=== PATIENT | female | born 1950 | race Caucasian/White ===

== ENCOUNTER 2020-10-08 07:44 | Inpatient (IN) | payer MEDICARE, OTHER ==
[2020-10-08] MEDS ORDERED: Acetaminophen/HYDROcodone 325-5 MG Tab PO ONE (07:55)
--- NOTE | 2020-10-08 08:19 | EDM.PDOC ---
ED HPI GENERAL MEDICAL PROBLEM - General Chief Complaint: Lower Extremity Injury/Pain Stated Complaint: [facility] Time Seen by Provider: 10/08/20 07:48 Source of Information: Reports: Patient History Limitations: Reports: No Limitations - History of Present Illness INITIAL COMMENTS - FREE TEXT/NARRATIVE: The patient presents by [facility] for a fall and left hip pain. She was going outside to shovel snow and she tripped and fell and landed on his left hip. She had to crawl into her house and call for help. She did not hit her head or hurt her neck. She is not on any blood thinners. She has no chest pain or abdominal pain. She has left hip pain. She has no fever, chills, cough, congestion, or runny nose. She has a history of type II diabetes on metformin and she also has hypothyroidism. She has no history of heart disease. Onset: Sudden Duration: Minutes: Location: Reports: Lower Extremity, Left (hip) Quality: Reports: Sharp Severity: Moderate Improves with: Reports: Immobilization Worsens with: Reports: Movement Context: Reports: Trauma (tripped and fell) Associated Symptoms: Reports: No Other Symptoms Left Hip Pain Score (Numeric/FACES): 5 - Related Data Allergies Allergy/AdvReac Type Severity Reaction Status Date / Time glipizide Allergy Dizziness Verified 10/08/20 07:52 Home Meds: Home Meds Levothyroxine 125 mcg PO DAILY 10/08/20 [History] metFORMIN [Glucophage] 1,000 mg PO BID 10/08/20 [History] Review of Systems - Review of Systems Review Of Systems: See Below Constitutional: Reports: No Symptoms Eyes: Reports: No Symptoms Ears: Reports: No Symptoms Nose: Reports: No Symptoms Mouth/Throat: Reports: No Symptoms Respiratory: Reports: No Symptoms Cardiovascular: Reports: No Symptoms GI/Abdominal: Reports: No Symptoms Genitourinary: Reports: No Symptoms Musculoskeletal: Reports: Other (Left hip pain) ED EXAM, GENERAL - Physical Exam Exam: See Below Exam Limited By: No Limitations General Appearance: Alert, No Apparent Distress Ears: Normal External Exam Nose: Normal Inspection Head: Atraumatic, Normocephalic Neck: Normal Inspection Respiratory/Chest: No Respiratory Distress, Lungs Clear, Normal Breath Sounds Cardiovascular: Regular Rate, Rhythm, No Edema, No Murmur GI/Abdominal: Soft, Non-Tender, No Organomegaly, No Mass Extremities: Other (Pain upon palpation to the left hip. Good sensation and pulses distally.) Neurological: Alert, Oriented, No Motor/Sensory Deficits #1 Interpretation EKG Date: 10/08/20 Time: 09:11 Rhythm: NSR Rate (Beats/Min): 85 [place]: Normal P-Wave: Present QRS: Normal ST-T: Normal QT: Normal Course - Vital Signs Last Recorded V/S: Last Vital Signs Temp 97.0 F 10/08/20 07:44 Pulse 90 10/08/20 07:44 Resp 16 10/08/20 07:44 BP 140/70 10/08/20 07:44 Pulse Ox 100 10/08/20 07:44 - Orders/Labs/Meds Orders: Active Orders 24 hr Category Date Time Status Patient Status [ADT] Routine ADT 10/08/20 09:54 Active Cardiac Monitoring [RC] . DIRECTED Care 10/08/20 08:42 Active EKG Documentation Completion [RC] STAT Care 10/08/20 08:43 Active Peripheral IV Care [RC] . DIRECTED Care 10/08/20 08:44 Active CORONAVIRUS COVID-19 ROHAN [MOLEC] Stat Lab 10/08/20 09:05 Received Sodium Chloride 0.9% [Saline Flush] Med 10/08/20 08:42 Active 10 ml FLUSH ASDIRECTED PRN Peripheral IV Insertion Adult [OM.PC] Stat Oth 10/08/20 08:42 Ordered Schedule Procedure [COMM] Stat Oth 10/08/20 09:54 Ordered Medication Orders Sodium Chloride (Saline Flush) 10 ml FLUSH ASDIRECTED PRN PRN Reason: Keep Vein Open Last Admin: 10/08/20 08:59 Dose: 10 ml Documented by: CATHI Labs: Laboratory Tests 10/08/20 10/08/20 10/08/20 Range/Units 08:59 08:59 08:59 WBC 12.91 H (3.98-10.04) K/mm3 RBC 4.72 (3.98-5.22) M/mm3 Hgb 14.8 (11.2-15.7) gm/dl Hct 43.7 (34.1-44.9) % MCV 92.6 (79.4-94.8) fl MCH 31.4 (25.6-32.2) pg MCHC 33.9 (32.2-35.5) g/dl RDW Std Deviation 43.5 (36.4-46.3) fL Plt Count 247 (182-369) K/mm3 MPV 9.9 (9.4-12.3) fl Neut % (Auto) 83.4 H (34.0-71.1) % Lymph % (Auto) 9.1 L (19.3-51.7) % [place] % (Auto) 6.7 (4.7-12.5) % Eos % (Auto) 0.4 L (0.7-5.8) Baso % (Auto) 0.1 (0.1-1.2) % Neut # (Auto) 10.77 H (1.56-6.13) K/mm3 Lymph # (Auto) 1.18 (1.18-3.74) K/mm3 [place] # (Auto) 0.86 H (0.24-0.36) K/mm3 Eos # (Auto) 0.05 (0.04-0.36) K/mm3 Baso # (Auto) 0.01 (0.01-0.08) K/mm3 Manual Slide Review Abnormal smear PT 10.3 (9.7-12.0) SECONDS INR 0.96 APTT 27.3 (21.7-31.4) SECONDS Sodium 141 (136-145) mEq/L Potassium 4.0 (3.5-5.1) mEq/L Chloride 100 (98-107) mEq/L Carbon Dioxide 27 (21-32) mEq/L Anion Gap 18.0 H (5-15) BUN 19 H (7-18) mg/dL Creatinine 0.9 (0.55-1.02) mg/dL Est Cr Clr Drug Dosing 51.59 mL/min Estimated GFR (MDRD) > 60 (>60) mL/min BUN/Creatinine Ratio 21.1 H (14-18) Glucose 181 H (83-115) mg/dL Hemoglobin A1c ( - 5.6) % Calcium 9.6 (8.5-10.1) mg/dL Total Bilirubin 0.4 (0.2-1.0) mg/dL AST 18 (15-37) U/L ALT 36 (14-59) U/L Alkaline Phosphatase 77 (46-116) U/L Troponin I < 0.017 (0.00-0.056) ng/mL Total Protein 8.0 (6.4-8.2) g/dl Albumin 4.0 (3.4-5.0) g/dl Globulin 4.0 gm/dL Albumin/Globulin Ratio 1.0 (1-2) TSH 3rd Generation 1.010 (0.358-3.74) uIU/mL 10/08/20 Range/Units 08:59 WBC (3.98-10.04) K/mm3 RBC (3.98-5.22) M/mm3 Hgb (11.2-15.7) gm/dl Hct (34.1-44.9) % MCV (79.4-94.8) fl MCH (25.6-32.2) pg MCHC (32.2-35.5) g/dl RDW Std Deviation (36.4-46.3) fL Plt Count (182-369) K/mm3 MPV (9.4-12.3) fl Neut % (Auto) (34.0-71.1) % Lymph % (Auto) (19.3-51.7) % [place] % (Auto) (4.7-12.5) % Eos % (Auto) (0.7-5.8) Baso % (Auto) (0.1-1.2) % Neut # (Auto) (1.56-6.13) K/mm3 Lymph # (Auto) (1.18-3.74) K/mm3 [place] # (Auto) (0.24-0.36) K/mm3 Eos # (Auto) (0.04-0.36) K/mm3 Baso # (Auto) (0.01-0.08) K/mm3 Manual Slide Review PT (9.7-12.0) SECONDS INR APTT (21.7-31.4) SECONDS Sodium (136-145) mEq/L Potassium (3.5-5.1) mEq/L Chloride (98-107) mEq/L Carbon Dioxide (21-32) mEq/L Anion Gap (5-15) BUN (7-18) mg/dL Creatinine (0.55-1.02) mg/dL Est Cr Clr Drug Dosing mL/min Estimated GFR (MDRD) (>60) mL/min BUN/Creatinine Ratio (14-18) Glucose (83-115) mg/dL Hemoglobin A1c 7.9 H ( - 5.6) % Calcium (8.5-10.1) mg/dL Total Bilirubin (0.2-1.0) mg/dL AST (15-37) U/L ALT (14-59) U/L Alkaline Phosphatase (46-116) U/L Troponin I (0.00-0.056) ng/mL Total Protein (6.4-8.2) g/dl Albumin (3.4-5.0) g/dl Globulin gm/dL Albumin/Globulin Ratio (1-2) TSH 3rd Generation (0.358-3.74) uIU/mL Meds: Medications Generic Name Dose Route Start Last Admin Trade Name Freq PRN Reason Stop Dose Admin Sodium Chloride 10 ml 10/08/20 08:42 10/08/20 08:59 Saline Flush FLUSH 10 ml ASDIRECTED PRN Administration Keep Vein Open Discontinued Medications Generic Name Dose Route Start Last Admin Trade Name Freq PRN Reason Stop Dose Admin Hydrocodone Bitart/Acetaminophen 1 tab 10/08/20 07:55 10/08/20 08:01 [place] 325-5 Mg PO 10/08/20 07:56 1 tab ONETIME ONE Administration - Re-Assessments/Exams Free Text/Narrative Re-Assessment/Exam: 10/08/20 09:05 I ordered an x-ray and it showed a subcapital fracture of the left hip. I gave her a norco before she had the x-ray. I called Dr Cedillo and he came to see the patient. He asked if we admit to the hospitalist service. I called Dr Tesfaye and he agreed to the admission. I have ordered an IV saline lock, labs, and EKG. 10/08/20 10:03 Her EKG shows a NSR with no acute changes. Her WBC was elevated at 12.91. Her PT and PTT are normal. Her glucose is elevated at 181. Her hemoglobin A1C was elevated at 7.9. Her troponin and TSH are normal. She will be going to surgery within the hour. Departure - Departure Time of Disposition: 10:05 Disposition: Admitted As Inpatient 65 Condition: Fair Clinical Impression: Fall Qualifiers: Encounter type: initial encounter Qualified Code(s): W19.XXXA - Unspecified fall, initial encounter Hip fracture, left Qualifiers: Encounter type: initial encounter Fracture type: closed Qualified Code(s): S72.002A - Fracture of unspecified part of neck of left femur, initial encounter for closed fracture - Discharge Information Referrals: Gifty Giordano MD [Primary Care Provider] - Forms: ED Department Discharge Sepsis Event Note (ED) - Focused Exam Vital Signs: Vital Signs Temp Pulse Resp BP Pulse Ox 10/08/20 07:44 97.0 F 90 16 140/70 100 - My Orders Last 24 Hours: My Active Orders 10/08/20 08:42 Cardiac Monitoring [RC] . DIRECTED Sodium Chloride 0.9% [Saline Flush] 10 ml FLUSH ASDIRECTED PRN Peripheral IV Insertion Adult [OM.PC] Stat 10/08/20 08:43 EKG Documentation Completion [RC] STAT 10/08/20 08:44 Peripheral IV Care [RC] . DIRECTED 10/08/20 09:05 CORONAVIRUS COVID-19 ROHAN [MOLEC] Stat 10/08/20 09:54 Patient Status [ADT] Routine Schedule Procedure [COMM] Stat - Assessment/Plan Last 24 Hours: My Active Orders 10/08/20 08:42 Cardiac Monitoring [RC] . DIRECTED Sodium Chloride 0.9% [Saline Flush] 10 ml FLUSH ASDIRECTED PRN Peripheral IV Insertion Adult [OM.PC] Stat 10/08/20 08:43 EKG Documentation Completion [RC] STAT 10/08/20 08:44 Peripheral IV Care [RC] . DIRECTED 10/08/20 09:05 CORONAVIRUS COVID-19 ROHAN [MOLEC] Stat 10/08/20 09:54 Patient Status [ADT] Routine Schedule Procedure [COMM] Stat
[2020-10-08] MEDS ORDERED: Sodium Chloride 0.9% 10 ML Syringe FLUSH PRN (08:42)
--- NOTE | 2020-10-08 08:45 | CR ---
Pelvis and left hip: AP view of the pelvis was obtained as well as AP and crosstable lateral views of the left hip. Nondisplaced subcapital fracture is noted within the left hip. Minimal degenerative change is seen within both hips. Slight disc space narrowing is noted within the lower thoracic spine. Osteopenia is noted. No additional fracture or other bony abnormality is appreciated. Impression: 1. Nondisplaced subcapital fracture within the left hip. 2. Osteopenia and mild degenerative change. Diagnostic code #3
[2020-10-08 09:23] LABS: HEMOGLOBIN A1C 7.9 %
--- NOTE | 2020-10-08 10:18 | PCM.PREANE ---
Preanesthetic Assessment - Procedure Proposed Procedure: Left hip - Anesthesia/Transfusion/Family Hx Anesthesia History: Prior Anesthesia Without Reaction - Review of Systems General: No Symptoms Pulmonary: No Symptoms Cardiovascular: No Symptoms Gastrointestinal: No Symptoms Neurological: No Symptoms Other: Reports: None - Physical Assessment NPO Status Date: 10/07/20 NPO Status Time: 18:30 Vital Signs: Last Vital Signs Temp 97.0 F 10/08/20 07:44 Pulse 90 10/08/20 07:44 Resp 16 10/08/20 07:44 BP 140/70 10/08/20 07:44 Pulse Ox 100 10/08/20 07:44 Height: 1.65 m Weight: 81.647 kg ASA Class: 2E Mental Status: Alert & Oriented x3 Airway Class: Mallampati = 3 Dentition: Reports: Normal Dentition, [place](s) Thyro-Mental Finger Breadths: 3 Mouth Opening Finger Breadths: 3 ROM/Head Extension: Full Lungs: Clear to Auscultation, Normal Respiratory Effort Cardiovascular: Regular Rate, Regular Rhythm - Lab Values: Laboratory Last Values WBC 12.91 K/mm3 (3.98-10.04) H 10/08/20 08:59 RBC 4.72 M/mm3 (3.98-5.22) 10/08/20 08:59 Hgb 14.8 gm/dl (11.2-15.7) 10/08/20 08:59 Hct 43.7 % (34.1-44.9) 10/08/20 08:59 MCV 92.6 fl (79.4-94.8) 10/08/20 08:59 MCH 31.4 pg (25.6-32.2) 10/08/20 08:59 MCHC 33.9 g/dl (32.2-35.5) 10/08/20 08:59 RDW Std Deviation 43.5 fL (36.4-46.3) 10/08/20 08:59 Plt Count 247 K/mm3 (182-369) 10/08/20 08:59 MPV 9.9 fl (9.4-12.3) 10/08/20 08:59 Neut % (Auto) 83.4 % (34.0-71.1) H 10/08/20 08:59 Lymph % (Auto) 9.1 % (19.3-51.7) L 10/08/20 08:59 [place] % (Auto) 6.7 % (4.7-12.5) 10/08/20 08:59 Eos % (Auto) 0.4 (0.7-5.8) L 10/08/20 08:59 Baso % (Auto) 0.1 % (0.1-1.2) 10/08/20 08:59 Neut # (Auto) 10.77 K/mm3 (1.56-6.13) H 10/08/20 08:59 Lymph # (Auto) 1.18 K/mm3 (1.18-3.74) 10/08/20 08:59 [place] # (Auto) 0.86 K/mm3 (0.24-0.36) H 10/08/20 08:59 Eos # (Auto) 0.05 K/mm3 (0.04-0.36) 10/08/20 08:59 Baso # (Auto) 0.01 K/mm3 (0.01-0.08) 10/08/20 08:59 Manual Slide Review Abnormal smear 10/08/20 08:59 PT 10.3 SECONDS (9.7-12.0) 10/08/20 08:59 INR 0.96 10/08/20 08:59 APTT 27.3 SECONDS (21.7-31.4) 10/08/20 08:59 Sodium 141 mEq/L (136-145) 10/08/20 08:59 Potassium 4.0 mEq/L (3.5-5.1) 10/08/20 08:59 Chloride 100 mEq/L (98-107) 10/08/20 08:59 Carbon Dioxide 27 mEq/L (21-32) 10/08/20 08:59 Anion Gap 18.0 (5-15) H 10/08/20 08:59 BUN 19 mg/dL (7-18) H 10/08/20 08:59 Creatinine 0.9 mg/dL (0.55-1.02) 10/08/20 08:59 Est Cr Clr Drug Dosing 51.59 mL/min 10/08/20 08:59 Estimated GFR (MDRD) > 60 mL/min (>60) 10/08/20 08:59 BUN/Creatinine Ratio 21.1 (14-18) H 10/08/20 08:59 Glucose 181 mg/dL (83-115) H 10/08/20 08:59 Hemoglobin A1c 7.9 % (-5.6) H 10/08/20 08:59 Calcium 9.6 mg/dL (8.5-10.1) 10/08/20 08:59 Total Bilirubin 0.4 mg/dL (0.2-1.0) 10/08/20 08:59 AST 18 U/L (15-37) 10/08/20 08:59 ALT 36 U/L (14-59) 10/08/20 08:59 Alkaline Phosphatase 77 U/L (46-116) 10/08/20 08:59 Troponin I < 0.017 ng/mL (0.00-0.056) 10/08/20 08:59 Total Protein 8.0 g/dl (6.4-8.2) 10/08/20 08:59 Albumin 4.0 g/dl (3.4-5.0) 10/08/20 08:59 Globulin 4.0 gm/dL 10/08/20 08:59 Albumin/Globulin Ratio 1.0 (1-2) 10/08/20 08:59 TSH 3rd Generation 1.010 uIU/mL (0.358-3.74) 10/08/20 08:59 SARS-CoV-2 RNA (ROHAN) Negative (NEGATIVE) 10/08/20 09:05 - Allergies Allergies/Adverse Reactions: Allergies Allergy/AdvReac Type Severity Reaction Status Date / Time glipizide Allergy Dizziness Verified 10/08/20 07:52 - Acknowledgements Anesthesia Type Planned: Spinal Pt an Appropriate Candidate for the Planned Anesthesia: Yes Alternatives and Risks of Anesthesia Discussed w Pt/Guardian: Yes Pt/Guardian Understands and Agrees with Anesthesia Plan: Yes PreAnesthesia Questionnaire HEENT History: Reports: Hard of Hearing, Impaired Vision Other HEENT History: wears eyeglasses, bilateral hearing aides. Genitourinary History: Reports: UTI, Recurrent [employer] History: Reports: Musculoskeletal History: Reports: Fracture Endocrine/Metabolic History: Reports: Diabetes, Type II, Hypothyroidism - Infectious Disease History Infectious Disease History: Reports: Chicken Pox, Measles, Mumps - Past Surgical History Neurological Surgical History: Reports: Discectomy, Lumbar Spine - SUBSTANCE USE Tobacco Use Status *Q: Never Tobacco User Second Hand Smoke Exposure: No Recreational Drug Use History: No - HOME MEDS Home Medications: Home Meds Levothyroxine 125 mcg PO DAILY 10/08/20 [History] metFORMIN [Glucophage] 1,000 mg PO BID 10/08/20 [History] - CURRENT (IN HOUSE) MEDS Current Meds: Current Medications Sodium Chloride (Saline Flush) 10 ml FLUSH ASDIRECTED PRN PRN Reason: Keep Vein Open Last Admin: 10/08/20 08:59 Dose: 10 ml Documented by: Discontinued Medications Hydrocodone Bitart/Acetaminophen ([place] 325-5 Mg) 1 tab PO ONETIME ONE Stop: 10/08/20 07:56 Last Admin: 10/08/20 08:01 Dose: 1 tab Documented by:
[2020-10-08] MEDS ORDERED: Propofol 200 MG/20 ML SDV ONE (10:41)
[2020-10-08] MEDS ORDERED: fentaNYL 100 MCG/2 ML SDV ONE (10:41)
[2020-10-08] MEDS ORDERED: Ketamine 500 mg/10 ML MDV ONE (10:42)
[2020-10-08] MEDS ORDERED: Midazolam 1 MG/ML 2 ML SDV ONE (10:42)
[2020-10-08] MEDS ORDERED: Lidocaine 1% 4 ML ONE (10:44)
[2020-10-08] MEDS ORDERED: Vancomycin 1 GM SDV ONE (10:58)
[2020-10-08] MEDS ORDERED: Bupivacaine 0.25% 10 ML SDV ONE (10:59)
[2020-10-08] MEDS ORDERED: ceFAZolin 1 GM Vial ONE (11:16)
[2020-10-08] MEDS ORDERED: Morphine 8 MG, EPINEPHrine 0.3 MG, Cefuroxime 750 MG, Ketorolac 30 MG, Sodium Chloride ... PRN ×5 (11:30)
[2020-10-08] MEDS ORDERED: Morphine 2 MG/ML SYRINGE IVPUSH PRN (13:26)
[2020-10-08] MEDS ORDERED: Ondansetron 4 MG/2 ML SDV IV PRN (13:26)
[2020-10-08] MEDS ORDERED: Docusate Sodium 100 MG Cap PO PRN (13:26)
[2020-10-08] MEDS ORDERED: Acetaminophen 325 MG Tab PO PRN (13:26)
--- NOTE | 2020-10-08 13:33 | PCM.POSTAN ---
POST ANESTHESIA ASSESSMENT - MENTAL STATUS Mental Status: Alert, Oriented, Somnolent - VITAL SIGNS Vital Signs: Last Vital Signs Temp 97.5 F 10/08/20 13:20 Pulse 77 10/08/20 13:20 Resp 12 10/08/20 13:20 BP 127/66 10/08/20 13:20 Pulse Ox 95 10/08/20 13:20 - RESPIRATORY Respiratory Status: Respiratory Rate WNL, Airway Patent, O2 Saturation Stable, Supplemental Oxygen - CARDIOVASCULAR CV Status: Pulse Rate WNL, Blood Pressure Stable - GASTROINTESTINAL GI Status: No Symptoms - PAIN Pain Score: 0 (post SAB) - POST OP HYDRATION Hydration Status: Adequate & Stable
--- NOTE | 2020-10-08 13:35 | PCM.HP.2 ---
H&P History of Present Illness - General Date of Service: 10/08/20 Admit Problem/Dx: Admission Diagnosis/Problem Admission Diagnosis/Problem Hip fracture requiring operative repair Source of Information: Patient, Old Records, Provider, RN, RN Notes Reviewed History Limitations: Reports: No Limitations - History of Present Illness Initial Comments - Free Text/Narative: This is a 1-year-old female who presents via [facility] to our ED on 08/07/2021 after a fall. Patient was going outside to shovel snow and tripped landing on her left hip. Denies hitting her head or hurting her back or neck. She denies any current blood thinners. She reports left hip pain. Denies any chest pain, abdominal pain, fever, chills, cough, congestion, runny nose. In the ED temp was 97 F. Pulse 90. Respirations 16. Blood pressure 140/70. Pulse ox 100% on room air. EKG is obtained showing a sinus rhythm at 85 bpm with no ectopy or make changes. Labs are obtained showing a WBC of 12.91. Hemoglobin is 14.8. Platelet 247,000. Neutrophils are elevated at 10.77. INR is 0.96. Sodium is 141. Potassium 4.0. Chloride 100. Carbon dioxide 27. Anion gap is 18.0. BUN is 19. Creatinine 0.9. GFR greater than 60. Glucose 181. Calcium is 9.6. Bilirubin 0.4. AST is 18, ALT 36, alkaline phosphatase 77. Troponin is less than 0.017. Albumin is 4.0. Hemoglobin A1c is 7.9. TSH 1.010. SARS-CoV-2 RNA negative. Hip x-rays obtained and shows a subcapital fracture of the left hip. She is given a Ragland for pain. Dr. Albarran today, orthopedic surgeon is into see the patient and will take her back to surgery today. Saline lock is inserted. Left BERE is performed today. She carries a history of type II DM and hypothyroidism. PCP is Dr. Giordano. She is a full code. She subsequently taken back for total hip arthroplasty and then admitted to the medical floor inpatient for recovery and postoperative management. Left Hip Pain Score (Numeric/FACES): 5 - Related Data Allergies/Adverse Reactions: Allergies Allergy/AdvReac Type Severity Reaction Status Date / Time glipizide AdvReac Dizziness Verified 10/08/20 10:47 Home Medications: Home Meds Levothyroxine 125 mcg PO DAILY 10/08/20 [History] metFORMIN [Glucophage] 1,000 mg PO BID 10/08/20 [History] Past Medical History HEENT History: Reports: Hard of Hearing, Impaired Vision Other HEENT History: wears eyeglasses, bilateral hearing aides. 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: Musculoskeletal History: Reports: Fracture Endocrine/Metabolic History: Reports: Diabetes, Type II, Hypothyroidism - Infectious Disease History Infectious Disease History: Reports: Chicken Pox, Measles, Mumps - Past Surgical History Neurological Surgical History: Reports: Discectomy, Lumbar Spine Social & Family History - Tobacco Use Tobacco Use Status *Q: Never Tobacco User Second Hand Smoke Exposure: No - Caffeine Use Caffeine Use: Reports: Coffee - Recreational Drug Use Recreational Drug Use: No H&P Review of Systems - Review of Systems: Review Of Systems: See Below General: Reports: No Symptoms. Denies: Fever, Chills, Malaise, Weakness, Fatigue HEENT: Reports: No Symptoms. Denies: Headaches, Sore Throat Pulmonary: Reports: No Symptoms. Denies: Shortness of Breath, Wheezing, Pleuritic Chest Pain, Cough, Sputum, Hemoptysis Cardiovascular: Reports: No Symptoms. Denies: Chest Pain, Palpitations, Dyspnea on Exertion Gastrointestinal: Reports: No Symptoms. Denies: Abdominal Pain, Constipation, Diarrhea, Nausea, Vomiting Genitourinary: Reports: No Symptoms. Denies: Pain Musculoskeletal: Reports: Leg Pain (left hip) Skin: Reports: No Symptoms. Denies: Cyanosis Psychiatric: Reports: No Symptoms. Denies: Confusion Neurological: Reports: Numbness, Tingling, Difficulty Walking, Weakness, Gait Disturbance. Denies: Confusion, Pre-Existing Deficit Hematologic/Lymphatic: Reports: No Symptoms Immunologic: Reports: No Symptoms Exam - Exam Exam: See Below - Vital Signs Vital Signs: Last Vital Signs Temp 97.5 F 10/08/20 13:20 Pulse 77 10/08/20 13:20 Resp 12 10/08/20 13:20 BP 127/66 10/08/20 13:20 Pulse Ox 95 10/08/20 13:20 Weight: 180 lb - Exam Quality Assessment: Supplemental Oxygen (2L ), DVT Prophylaxis. No: Urinary Catheter General: Alert, Oriented, Cooperative. No: Mild Distress HEENT: Conjunctiva Clear, EACs Clear, Mucosa Moist & [place], Posterior Pharynx Clear Neck: Supple, Trachea Midline Cardiovascular: Regular Rate, Regular Rhythm GI/Abdominal Exam: Normal Bowel Sounds, Soft, Non-Tender, No Distention (Female) Exam: Deferred Rectal (Female) Exam: Deferred Extremities: Leg Pain, Limited Range of Motion, Other (Bandage in place on left leg. Bandage is dry and intact. Cooling pack in place. ) Peripheral Pulses: 3+: Radial (L), Radial (R), Dorsalis Pedis (L), Dorsalis Pedis (R) Skin: Warm, Dry, Intact Neurological: Cranial Nerves Intact (Grossly ) Neuro Extensive - Mental Status: Alert, Oriented x3, Normal Mood/Affect - Patient Data Lab Results Last 24 hrs: Laboratory Results - last 24 hr 10/08/20 10/08/20 10/08/20 Range/Units 08:59 08:59 08:59 WBC 12.91 H (3.98-10.04) K/mm3 RBC 4.72 (3.98-5.22) M/mm3 Hgb 14.8 (11.2-15.7) gm/dl Hct 43.7 (34.1-44.9) % MCV 92.6 (79.4-94.8) fl MCH 31.4 (25.6-32.2) pg MCHC 33.9 (32.2-35.5) g/dl RDW Std Deviation 43.5 (36.4-46.3) fL Plt Count 247 (182-369) K/mm3 MPV 9.9 (9.4-12.3) fl Neut % (Auto) 83.4 H (34.0-71.1) % Lymph % (Auto) 9.1 L (19.3-51.7) % Rooks % (Auto) 6.7 (4.7-12.5) % Eos % (Auto) 0.4 L (0.7-5.8) Baso % (Auto) 0.1 (0.1-1.2) % Neut # (Auto) 10.77 H (1.56-6.13) K/mm3 Lymph # (Auto) 1.18 (1.18-3.74) K/mm3 Rooks # (Auto) 0.86 H (0.24-0.36) K/mm3 Eos # (Auto) 0.05 (0.04-0.36) K/mm3 Baso # (Auto) 0.01 (0.01-0.08) K/mm3 Manual Slide Review Abnormal smear PT 10.3 (9.7-12.0) SECONDS INR 0.96 APTT 27.3 (21.7-31.4) SECONDS Sodium 141 (136-145) mEq/L Potassium 4.0 (3.5-5.1) mEq/L Chloride 100 (98-107) mEq/L Carbon Dioxide 27 (21-32) mEq/L Anion Gap 18.0 H (5-15) BUN 19 H (7-18) mg/dL Creatinine 0.9 (0.55-1.02) mg/dL Est Cr Clr Drug Dosing 51.59 mL/min Estimated GFR (MDRD) > 60 (>60) mL/min BUN/Creatinine Ratio 21.1 H (14-18) Glucose 181 H (83-115) mg/dL Hemoglobin A1c ( - 5.6) % Calcium 9.6 (8.5-10.1) mg/dL Total Bilirubin 0.4 (0.2-1.0) mg/dL AST 18 (15-37) U/L ALT 36 (14-59) U/L Alkaline Phosphatase 77 (46-116) U/L Troponin I < 0.017 (0.00-0.056) ng/mL Total Protein 8.0 (6.4-8.2) g/dl Albumin 4.0 (3.4-5.0) g/dl Globulin 4.0 gm/dL Albumin/Globulin Ratio 1.0 (1-2) TSH 3rd Generation 1.010 (0.358-3.74) uIU/mL SARS-CoV-2 RNA (ROHAN) (NEGATIVE) 10/08/20 10/08/20 Range/Units 08:59 09:05 WBC (3.98-10.04) K/mm3 RBC (3.98-5.22) M/mm3 Hgb (11.2-15.7) gm/dl Hct (34.1-44.9) % MCV (79.4-94.8) fl MCH (25.6-32.2) pg MCHC (32.2-35.5) g/dl RDW Std Deviation (36.4-46.3) fL Plt Count (182-369) K/mm3 MPV (9.4-12.3) fl Neut % (Auto) (34.0-71.1) % Lymph % (Auto) (19.3-51.7) % Rooks % (Auto) (4.7-12.5) % Eos % (Auto) (0.7-5.8) Baso % (Auto) (0.1-1.2) % Neut # (Auto) (1.56-6.13) K/mm3 Lymph # (Auto) (1.18-3.74) K/mm3 Rooks # (Auto) (0.24-0.36) K/mm3 Eos # (Auto) (0.04-0.36) K/mm3 Baso # (Auto) (0.01-0.08) K/mm3 Manual Slide Review PT (9.7-12.0) SECONDS INR APTT (21.7-31.4) SECONDS Sodium (136-145) mEq/L Potassium (3.5-5.1) mEq/L Chloride (98-107) mEq/L Carbon Dioxide (21-32) mEq/L Anion Gap (5-15) BUN (7-18) mg/dL Creatinine (0.55-1.02) mg/dL Est Cr Clr Drug Dosing mL/min Estimated GFR (MDRD) (>60) mL/min BUN/Creatinine Ratio (14-18) Glucose (83-115) mg/dL Hemoglobin A1c 7.9 H ( - 5.6) % Calcium (8.5-10.1) mg/dL Total Bilirubin (0.2-1.0) mg/dL AST (15-37) U/L ALT (14-59) U/L Alkaline Phosphatase (46-116) U/L Troponin I (0.00-0.056) ng/mL Total Protein (6.4-8.2) g/dl Albumin (3.4-5.0) g/dl Globulin gm/dL Albumin/Globulin Ratio (1-2) TSH 3rd Generation (0.358-3.74) uIU/mL SARS-CoV-2 RNA (ROHAN) Negative (NEGATIVE) Result Diagrams: 10/08/20 08:59 10/08/20 08:59 Sepsis Event Note - Evaluation Sepsis Screening Result: No Definite Risk - Focused Exam Vital Signs: Vital Signs Temp Pulse Resp BP Pulse Ox Pulse Ox 10/08/20 13:20 97.5 F 77 12 127/66 95 10/08/20 13:11 94 L 10/08/20 13:03 207.5 F H 86 17 125/61 94 L 10/08/20 11:18 98.3 F 88 16 143/71 H 95 10/08/20 07:44 97.0 F 90 16 140/70 100 - Problem List (1) S/P total hip arthroplasty SNOMED Code(s): 569370166289, 736380565051 ICD Code: Z96.649 - PRESENCE OF UNSPECIFIED ARTIFICIAL HIP JOINT Status: Acute Priority: High Current Visit: Yes Qualifiers: Laterality: left Qualified Code(s): Z96.642 - Presence of left artificial hip joint (2) Hypothyroidism SNOMED Code(s): 78459553 ICD Code: E03.9 - HYPOTHYROIDISM, UNSPECIFIED Status: Chronic Priority: Low Current Visit: No Qualifiers: Hypothyroidism type: unspecified Qualified Code(s): E03.9 - Hypothyroidism, unspecified (3) Type II diabetes mellitus SNOMED Code(s): 17552381 ICD Code: E11.9 - TYPE 2 DIABETES MELLITUS WITHOUT COMPLICATIONS Status: Chronic Priority: Medium Current Visit: No Qualifiers: Diabetes mellitus terminal make up operator insulin use: without terminal make up operator use Diabetes mellitus complication status: without complication Qualified Code(s): E11.9 - Type 2 diabetes mellitus without complications (4) Fall SNOMED Code(s): 9561496, 742441749 ICD Code: W19.XXXA - UNSPECIFIED FALL, INITIAL ENCOUNTER Status: Acute Priority: High Current Visit: Yes Qualifiers: Encounter type: initial encounter Qualified Code(s): W19.XXXA - Unspecified fall, initial encounter (5) Hip fracture, left SNOMED Code(s): 881399975, 96773493391326375 ICD Code: S72.002A - FRACTURE OF UNSP PART OF NECK OF LEFT FEMUR, INIT Status: Acute Priority: High Current Visit: Yes Qualifiers: Encounter type: initial encounter Fracture type: closed Qualified Code(s): S72.002A - Fracture of unspecified part of neck of left femur, initial encounter for closed fracture Problem List Initiated/Reviewed/Updated: Yes Orders Last 24hrs: Active Orders 24 hr Category Date Time Status Admission Status [Patient Status] [ADT] Routine ADT 10/08/20 13:25 Active Patient Status Manage Transfer [TRANSFER] Routine ADT 10/08/20 13:07 Active Accu Check [Blood Glucose Check, Bedside] [RC] Care 10/08/20 13:31 Active QIDACANDBED Antiembolic Devices [RC] PER UNIT ROUTINE Care 10/08/20 13:27 Active Antiembolic Devices [RC] PER UNIT ROUTINE Care 10/08/20 13:34 Ordered Cardiac Monitoring [RC] . DIRECTED Care 10/08/20 08:42 Active Communication Order [RC] ASDIRECTED Care 10/08/20 12:21 Active Cooling Measures [Cooling Warming Measures] [RC] Care 10/08/20 13:29 Active ASDIRECTED Cooling Warming Measures [RC] ASDIRECTED Care 10/08/20 12:21 Active EKG Documentation Completion [RC] STAT Care 10/08/20 08:43 Active Height and Weight [RC] DAILY Care 10/08/20 13:26 Active Intake and Output [RC] QSHIFT Care 10/08/20 13:26 Active Notify Provider Consults [RC] ASDIRECTED Care 10/08/20 13:27 Active Oxygen Therapy [RC] ASDIRECTED Care 10/08/20 12:21 Active Peripheral IV Care [RC] . DIRECTED Care 10/08/20 08:44 Active Pulse Oximetry [RC] ASDIRECTED Care 10/08/20 12:21 Active RT Incentive Spirometry [RC] ASDIRECTED Care 10/08/20 13:29 Active Up With Assistance [RC] ASDIRECTED Care 10/08/20 13:26 Active VTE/DVT Education [RC] PER UNIT ROUTINE Care 10/08/20 13:26 Active Vital Signs [RC] Q15M Care 10/08/20 12:21 Active Vital Signs [RC] Q4H Care 10/08/20 13:26 Active Consult to Case Management/Glass Artist [CONS] Cons 10/08/20 13:26 Active Routine Consult to Occupational Therapy [OT Evaluation and Cons 10/08/20 13:07 Active Treatment] [CONS] Routine Consult to Physical Therapy [PT Evaluation and Cons 10/08/20 13:06 Active Treatment] [CONS] Routine Consult to Physician [CONS] Routine Cons 10/08/20 13:26 Active Consult to Spiritual Care [CONS] Routine Cons 10/08/20 13:26 Active Consistent Carbohydrate Diet [DIET] Diet 10/08/20 Dinner Active Hip Min 1V w Pelvis Lt [CR] Routine Exams 10/08/20 13:31 Ordered Acetaminophen [TylenoL] Med 10/08/20 13:26 Active 650 mg PO Q4H PRN Acetaminophen/HYDROcodone [Ragland 325-5 MG] Med 10/08/20 13:05 Active 1 tab PO Q4H PRN Aspirin [Ecotrin] Med 10/09/20 09:00 Ordered 325 mg PO BID Cyclobenzaprine [Flexeril] Med 10/08/20 13:06 Active 10 mg PO TID PRN Docusate Sodium [Colace] Med 10/08/20 13:26 Active 100 mg PO BID PRN Famotidine [Pepcid] Med 10/09/20 09:00 Active 20 mg PO DAILY Insulin Lispro [HumaLOG] Med 10/08/20 17:00 Active See Protocol SUBCUT QIDACANDBED Levothyroxine Med 10/09/20 09:00 Active 125 mcg PO DAILY Morphine Med 10/08/20 13:26 Active 2 mg IVPUSH Q2H PRN Morphine 8 mg Med 10/08/20 11:30 Active EPINEPHrine [Adrenalin] 0.3 mg Cefuroxime [Zinacef] 750 mg Ketorolac [Toradol] 30 mg Sodium Chloride 0.9% [Normal Saline] 7.9 ml .XX ASDIRECTED Ondansetron [Zofran] Med 10/08/20 13:26 Active 4 mg IV Q6H PRN Sodium Chloride 0.9% [Saline Flush] Med 10/08/20 08:42 Active 10 ml FLUSH ASDIRECTED PRN Peripheral IV Insertion Adult [OM.PC] Stat Oth 10/08/20 08:42 Ordered Schedule Procedure [COMM] Stat Oth 10/08/20 09:54 Ordered Sequential Compression Device [OM.PC] Per Unit Routine Oth 10/08/20 13:26 Ordered CORBIN Hose [Antiembolic Hose] [OM.PC] Routine Oth 10/08/20 13:34 Ordered Weight bearing status [OM.PC] Routine Oth 10/08/20 13:04 Ordered Resuscitation Status Routine Resus Stat 10/08/20 13:26 Ordered Medication Orders Acetaminophen (Tylenol) 650 mg PO Q4H PRN PRN Reason: Pain (Mild 1-3)/fever Hydrocodone Bitart/Acetaminophen (Ragland 325-5 Mg) 1 tab PO Q4H PRN PRN Reason: Pain Aspirin (Ecotrin) 325 mg PO BID [facility] Morphine Sulfate 8 mg/Epinephrine HCl 0.3 mg/Cefuroxime Sodium 750 mg/Ketorolac Tromethamine 30 mg/Sodium Chloride 7.9 ml 0 mg .XX ASDIRECTED PRN PRN Reason: Other Stop: 10/08/20 18:00 Cyclobenzaprine HCl (Flexeril) 10 mg PO TID PRN PRN Reason: Muscle Spasm Docusate Sodium (Colace) 100 mg PO BID PRN PRN Reason: Constipation Famotidine (Pepcid) 20 mg PO DAILY [facility] Insulin Human Lispro (Humalog) 0 unit SUBCUT QIDACANDBED [facility]; Protocol Levothyroxine Sodium (Levothyroxine) 125 mcg PO DAILY [facility] Morphine Sulfate (Morphine) 2 mg IVPUSH Q2H PRN PRN Reason: Breakthrough Pain Stop: 10/09/20 13:27 Ondansetron HCl (Zofran) 4 mg IV Q6H PRN PRN Reason: Nausea/Vomiting Sodium Chloride (Saline Flush) 10 ml FLUSH ASDIRECTED PRN PRN Reason: Keep Vein Open Stop: 10/08/20 18:00 Last Admin: 10/08/20 08:59 Dose: 10 ml Documented by: CATHI Assessment/Plan Comment:: Assessment - day of admission 10/08/20 * 70 yo female who presents to our ED after a fall resulting in left hip pain * History of type II DM and hypothyroidism * 12-Lead EKG obtained in ED: NSR at 85 BPM with no ectopy or signs of ischemia * Denies any infectious symptoms * Denies hitting head or hurting back/neck * Hip X-ray in ED: Subcapital fracture of left hip * Labs in ED: * WBC 12.91 * Hgb 14.8 * Plt 247 * Neutrophils 10.77 * INR 0.96 * Sodium 141 * Potassium 4.0 * Anion gap 18.0 * BUN 19, Creatinine 0.9, GFR >60 * Glucose 181 * Bilirubin 0.4 * AST 18, ALT 36, Alk Phos 77 * Troponin <0.017 * Albumin 4.0 * TSH 1.010 * A1C 7.9 * SARS-CoV-2 RNA negative * Given norco for pain * Dr. Cedillo consulted in ED * Patient taken back for BERE on 10/08/20 PLAN S/P total hip arthroplasty with Dr. Cedillo on 10/08/20 Hip fracture, left Fall * Pain medications/Flexeril as ordered * 325 ASA BID starting 10/09/20 * SCDs/CORBIN Hose * Polar care * PT/OT consultation * CM/SW consultation * Dr. Cedillo following * O2 as needed * Ambulate once numbness wears off * Monitor labs Hypothyroidism Type II diabetes mellitus * Hold metformin * Low intensity sliding scale insulin * QID AC and Bedtime blood glucose checks * Consistent carbohydrate diet * Continue levothyroxine Code status: Full Code PCP: Dr. Giordano DVT prophylaxis: SCDs, CORBIN hose, and BID ASA Social: Patient plans to discharge with her son who will take care of her Disposition: Patient admitted after surgical fixation of her left hip fracture, BERE, and for post-operative management. - Mortality Measure Prognosis:: Good
--- NOTE | 2020-10-08 14:24 | CR ---
Pelvis and left hip: AP view of the pelvis was obtained as well as crosstable lateral view left hip. Comparison: Prior pelvis and left hip study performed earlier on same day (8:05 AM). Left hip prosthesis is noted. This is an interval change from prior study. Osteopenia is present. Minimal degenerative change within the right hip is noted. Impression: 1. Recently placed left hip prosthesis as an interval change from prior study. 2. Nothing acute is otherwise seen. Diagnostic code #2
--- NOTE | 2020-10-08 16:00 | PCM.OPNOTE ---
- General Post-Op/Procedure Note Date of Surgery/Procedure: 10/08/20 Operative Procedure(s): left total hip arthroplasty Pre Op Diagnosis: displaced left subcapital femoral neck fracture Post-Op Diagnosis: Same Anesthesia Technique: Local, MAC, Spinal Primary Surgeon: Raymon Cedillo Anesthesia Provider: Bandar Medley Package Sealer: Radha Georges EBL in mLs: 150 Complications: None Condition: Good Free Text/Narrative:: Intake & Output 10/08/20 10/08/20 10/08/20 06:59 14:59 22:59 Intake Total 200 Balance 200 52 cup 5 stem 28+0
[2020-10-08] MEDS: Acetaminophen/HYDROcodone 325-5 MG Tab PO PRN ×2 (17:52→21:59)
[2020-10-08] MEDS: Cyclobenzaprine 10 MG Tab PO PRN (20:58)
[2020-10-09] MEDS: Acetaminophen/HYDROcodone 325-5 MG Tab PO PRN ×5 (05:22→21:11)
[2020-10-09] MEDS: Famotidine 20 MG Tab PO SCH (08:31)
[2020-10-09] MEDS: Levothyroxine 125 MCG Tab PO SCH (08:31)
[2020-10-09] MEDS: Aspirin 325 MG Tab.EC PO SCH ×2 (08:31→21:11)
[2020-10-09] MEDS: Cyclobenzaprine 10 MG Tab PO PRN (08:49)
--- NOTE | 2020-10-09 10:30 | PCM.PN ---
- General Info Date of Service: 10/09/20 Admission Dx/Problem (Free Text): Admission Diagnosis/Problem Admission Diagnosis/Problem Hip fracture requiring operative repair Subjective Update: In to see Darlin. She is laying in bed. She has been working with PT and OT. They report the patient was very delayed in the wearing off of her numbness yesterday and she did not get to ambulate. They feel it would be best if she remains hospitalized overnight and discharged in the morning as then she can receive continued treatment. This certainly seems reasonable. Patient agrees to this and has no current concerns aside from her hip pain. We will recheck labs in the morning and plan for discharge tomorrow pending continued stability. Functional Status: Reports: Pain Controlled, Tolerating Diet, Ambulating, Urinating, Incentive Spirometry. Denies: New Symptoms - Review of Systems General: Reports: No Symptoms, Weakness. Denies: Fever, Fatigue, Malaise, Chills HEENT: Reports: No Symptoms. Denies: Headaches, Sore Throat Pulmonary: Reports: No Symptoms. Denies: Shortness of Breath, Cough, Sputum, Wheezing Cardiovascular: Reports: No Symptoms. Denies: Chest Pain, Palpitations, Dyspnea on Exertion, Edema Gastrointestinal: Reports: No Symptoms. Denies: Abdominal Pain, Constipation, Diarrhea, Nausea, Vomiting Genitourinary: Reports: No Symptoms. Denies: Pain Musculoskeletal: Reports: Leg Pain (Left ) Skin: Reports: No Symptoms. Denies: Cyanosis Neurological: Reports: Difficulty Walking, Weakness, Gait Disturbance. Denies: Confusion Psychiatric: Reports: No Symptoms - Patient Data Vitals - Most Recent: Last Vital Signs Temp 98.4 F 10/09/20 08:17 Pulse 87 10/09/20 08:17 Resp 18 10/09/20 05:08 BP 128/63 10/09/20 08:17 Pulse Ox 96 10/09/20 08:38 Weight - Most Recent: 185 lb 3.2 oz I&O - Last 24 Hours: Intake & Output 10/08/20 10/09/20 10/09/20 22:59 06:59 14:59 Intake Total 180 400 300 Output Total 200 250 Balance -20 150 300 Lab Results Last 24 Hours: Laboratory Results - last 24 hr 10/08/20 10/08/20 10/08/20 Range/Units 08:59 16:41 21:10 WBC (3.98-10.04) K/mm3 RBC (3.98-5.22) M/mm3 Hgb (11.2-15.7) gm/dl Hct (34.1-44.9) % MCV (79.4-94.8) fl MCH (25.6-32.2) pg MCHC (32.2-35.5) g/dl RDW Std Deviation (36.4-46.3) fL Plt Count (182-369) K/mm3 MPV (9.4-12.3) fl Neut % (Auto) (34.0-71.1) % Lymph % (Auto) (19.3-51.7) % [place] % (Auto) (4.7-12.5) % Eos % (Auto) (0.7-5.8) Baso % (Auto) (0.1-1.2) % Neut # (Auto) (1.56-6.13) K/mm3 Lymph # (Auto) (1.18-3.74) K/mm3 [place] # (Auto) (0.24-0.36) K/mm3 Eos # (Auto) (0.04-0.36) K/mm3 Baso # (Auto) (0.01-0.08) K/mm3 Sodium (136-145) mEq/L Potassium (3.5-5.1) mEq/L Chloride (98-107) mEq/L Carbon Dioxide (21-32) mEq/L Anion Gap (5-15) BUN (7-18) mg/dL Creatinine (0.55-1.02) mg/dL Est Cr Clr Drug Dosing mL/min Estimated GFR (MDRD) (>60) mL/min BUN/Creatinine Ratio (14-18) Glucose (83-115) mg/dL POC Glucose 181 H 231 H 209 H (83-110) mg/dL Calcium (8.5-10.1) mg/dL Total Bilirubin (0.2-1.0) mg/dL AST (15-37) U/L ALT (14-59) U/L Alkaline Phosphatase (46-116) U/L Total Protein (6.4-8.2) g/dl Albumin (3.4-5.0) g/dl Globulin gm/dL Albumin/Globulin Ratio (1-2) 02/05/21 02/05/21 02/05/21 Range/Units 04:59 04:59 06:32 WBC 9.34 (3.98-10.04) K/mm3 RBC 4.09 (3.98-5.22) M/mm3 Hgb 12.8 D (11.2-15.7) gm/dl Hct 38.3 (34.1-44.9) % MCV 93.6 (79.4-94.8) fl MCH 31.3 (25.6-32.2) pg MCHC 33.4 (32.2-35.5) g/dl RDW Std Deviation 43.5 (36.4-46.3) fL Plt Count 210 (182-369) K/mm3 MPV 10.2 (9.4-12.3) fl Neut % (Auto) 72.0 H (34.0-71.1) % Lymph % (Auto) 13.5 L (19.3-51.7) % [place] % (Auto) 13.1 H (4.7-12.5) % Eos % (Auto) 1.1 (0.7-5.8) Baso % (Auto) 0.1 (0.1-1.2) % Neut # (Auto) 6.73 H (1.56-6.13) K/mm3 Lymph # (Auto) 1.26 (1.18-3.74) K/mm3 [place] # (Auto) 1.22 H (0.24-0.36) K/mm3 Eos # (Auto) 0.10 (0.04-0.36) K/mm3 Baso # (Auto) 0.01 (0.01-0.08) K/mm3 Sodium 136 (136-145) mEq/L Potassium 3.9 (3.5-5.1) mEq/L Chloride 99 (98-107) mEq/L Carbon Dioxide 25 (21-32) mEq/L Anion Gap 15.9 H (5-15) BUN 13 (7-18) mg/dL Creatinine 0.8 (0.55-1.02) mg/dL Est Cr Clr Drug Dosing 58.04 mL/min Estimated GFR (MDRD) > 60 (>60) mL/min BUN/Creatinine Ratio 16.3 (14-18) Glucose 177 H (83-115) mg/dL POC Glucose 207 H (83-110) mg/dL Calcium 8.5 (8.5-10.1) mg/dL Total Bilirubin 0.7 (0.2-1.0) mg/dL AST 33 (15-37) U/L ALT 29 (14-59) U/L Alkaline Phosphatase 52 (46-116) U/L Total Protein 6.8 (6.4-8.2) g/dl Albumin 3.3 L (3.4-5.0) g/dl Globulin 3.5 gm/dL Albumin/Globulin Ratio 0.9 L (1-2) Med Orders - Current: Current Medications Acetaminophen (Tylenol) 650 mg PO Q4H PRN PRN Reason: Pain (Mild 1-3)/fever Last Admin: 10/08/20 14:52 Dose: 650 mg Documented by: Hydrocodone Bitart/Acetaminophen ([place] 325-5 Mg) 1 tab PO Q4H PRN PRN Reason: Pain Last Admin: 10/09/20 08:49 Dose: 1 tab Documented by: Aspirin (Ecotrin) 325 mg PO BID [facility] Last Admin: 10/09/20 08:31 Dose: 325 mg Documented by: Cyclobenzaprine HCl (Flexeril) 10 mg PO TID PRN PRN Reason: Muscle Spasm Last Admin: 10/09/20 08:49 Dose: 10 mg Documented by: Docusate Sodium (Colace) 100 mg PO BID PRN PRN Reason: Constipation Famotidine (Pepcid) 20 mg PO DAILY [facility] Last Admin: 10/09/20 08:31 Dose: 20 mg Documented by: Insulin Human Lispro (Humalog) 0 unit SUBCUT QIDACANDBED [facility]; Protocol Last Admin: 10/09/20 08:32 Dose: 2 units Documented by: Levothyroxine Sodium (Levothyroxine) 125 mcg PO DAILY [facility] Last Admin: 10/09/20 08:31 Dose: 125 mcg Documented by: Morphine Sulfate (Morphine) 2 mg IVPUSH Q2H PRN PRN Reason: Breakthrough Pain Stop: 10/09/20 13:27 Last Admin: 10/09/20 01:03 Dose: 2 mg Documented by: Ondansetron HCl (Zofran) 4 mg IV Q6H PRN PRN Reason: Nausea/Vomiting Discontinued Medications Hydrocodone Bitart/Acetaminophen ([place] 325-5 Mg) 1 tab PO ONETIME ONE Stop: 10/08/20 07:56 Last Admin: 10/08/20 08:01 Dose: 1 tab Documented by: Bupivacaine HCl (Sensorcaine-Mpf 0.25%) Confirm Administered Dose 0 ml .ROUTE .STK-MED ONE Stop: 10/08/20 11:00 Cefazolin Sodium (Ancef) Confirm Administered Dose 2 gm .ROUTE .STK-MED ONE Stop: 10/08/20 11:17 Morphine Sulfate 8 mg/Epinephrine HCl 0.3 mg/Cefuroxime Sodium 750 mg/Ketorolac Tromethamine 30 mg/Sodium Chloride 7.9 ml 0 mg .XX ASDIRECTED PRN PRN Reason: Other Stop: 10/08/20 18:00 Last Admin: 10/08/20 12:43 Dose: 788.3 mg Documented by: Fentanyl (Sublimaze) Confirm Administered Dose 100 mcg .ROUTE .STK-MED ONE Stop: 10/08/20 10:42 Lidocaine HCl (Xylocaine-Mpf 1%) Confirm Administered Dose 4 mls @ as directed .ROUTE .STK-MED ONE Stop: 10/08/20 10:45 Ketamine HCl (Ketalar) Confirm Administered Dose 500 mg .ROUTE .STK-MED ONE Stop: 10/08/20 10:43 Midazolam HCl (Versed 1 Mg/Ml) Confirm Administered Dose 2 mg .ROUTE .STK-MED ONE Stop: 10/08/20 10:43 Miscellaneous Medication (Phenylephrine 1 Mg/10 Ml-Ns) Confirm Administered Dose 1 mg .ROUTE .STK-MED ONE Stop: 10/08/20 11:50 Miscellaneous Medication (Phenylephrine 1 Mg/10 Ml-Ns) Confirm Administered Dose 1 mg .ROUTE .STK-MED ONE Stop: 10/08/20 12:34 Propofol (Diprivan 20 Ml) Confirm Administered Dose 400 mg .ROUTE .STK-MED ONE Stop: 10/08/20 10:42 Sodium Chloride (Saline Flush) 10 ml FLUSH ASDIRECTED PRN PRN Reason: Keep Vein Open Stop: 10/08/20 18:00 Last Admin: 10/08/20 08:59 Dose: 10 ml Documented by: Tranexamic Acid (Cyklokapron) Confirm Administered Dose 1,000 mg .ROUTE .STK-MED ONE Stop: 10/08/20 10:59 Last Admin: 10/08/20 12:47 Dose: 1,000 mg Documented by: Vancomycin HCl (Vancomycin) Confirm Administered Dose 1 gm .ROUTE .STK-MED ONE Stop: 10/08/20 10:59 Last Admin: 10/08/20 12:47 Dose: 1 gm Documented by: - Exam Quality Assessment: DVT Prophylaxis General: Alert, Oriented, Cooperative, No Acute Distress HEENT: Pupils Equal, Pupils Reactive, Mucous Membr. Moist/[place] Neck: Supple, Trachea Midline Lungs: Clear to Auscultation, Normal Respiratory Effort Cardiovascular: Regular Rate, Regular Rhythm GI/Abdominal Exam: Normal Bowel Sounds, Soft, Non-Tender, No Distention (Female) Exam: Deferred Back Exam: Normal Inspection, Full Range of Motion Extremities: Leg Pain (left ), Limited Range of Motion, Other (Bandage place on left leg. Cooling pack in place.) Peripheral Pulses: 2+: Radial (L), Radial (R), Dorsalis Pedis (L), Dorsalis Pedis (R) Skin: Warm, Dry, Intact Wound/Incisions: Dressing Dry and Intact Neurological: No New Focal Deficit Psy/Mental Status: Alert, Normal Affect, Normal Mood Sepsis Event Note - Evaluation Sepsis Screening Result: Sepsis Risk - Focused Exam Vital Signs: Vital Signs Temp Pulse Resp BP Pulse Ox Pulse Ox Pulse Ox 10/09/20 08:38 96 10/09/20 08:17 98.4 F 87 128/63 95 10/09/20 05:25 95 10/09/20 05:14 100 95 10/09/20 05:08 99.1 F 102 H 18 143/60 H 90 L 10/09/20 05:05 99.1 F 101 H 18 143/60 H 91 L 10/09/20 01:09 99.3 F 93 17 135/61 95 - Problem List & Annotations (1) S/P total hip arthroplasty SNOMED Code(s): 832010284538, 832199979853 Code(s): Z96.649 - PRESENCE OF UNSPECIFIED ARTIFICIAL HIP JOINT Status: A cute Priority: High Current Visit: Yes Qualifiers: Laterality: left Qualified Code(s): Z96.642 - Presence of left artificial hip joint (2) Hypothyroidism SNOMED Code(s): 72728651 Code(s): E03.9 - HYPOTHYROIDISM, UNSPECIFIED Status: Chronic Priority: Low Current Visit: No Qualifiers: Hypothyroidism type: unspecified Qualified Code(s): E03.9 - Hypothyroidism, unspecified (3) Type II diabetes mellitus SNOMED Code(s): 16723863 Code(s): E11.9 - TYPE 2 DIABETES MELLITUS WITHOUT COMPLICATIONS Status: Chronic Priority: Medium Current Visit: No Qualifiers: Diabetes mellitus terminal system operator insulin use: without custodial use Diabetes mellitus complication status: without complication Qualified Code(s): E11.9 - Type 2 diabetes mellitus without complications (4) Fall SNOMED Code(s): 9681915, 519799915 Code(s): W19.XXXA - UNSPECIFIED FALL, INITIAL ENCOUNTER Status: Acute Priority: High Current Visit: Yes Qualifiers: Encounter type: initial encounter Qualified Code(s): W19.XXXA - Unspecified fall, initial encounter (5) Hip fracture, left SNOMED Code(s): 967259493, 16234230686777274 Code(s): S72.002A - FRACTURE OF UNSP PART OF NECK OF LEFT FEMUR, INIT Status: Acute Priority: High Current Visit: Yes Qualifiers: Encounter type: initial encounter Fracture type: closed Qualified Code(s): S72.002A - Fracture of unspecified part of neck of left femur, initial encounter for closed fracture - Problem List Review Problem List Initiated/Reviewed/Updated: Yes - My Orders Last 24 Hours: My Active Orders 10/08/20 13:25 Admission Status [Patient Status] [ADT] Routine 10/08/20 13:26 Height and Weight [RC] 04 Intake and Output [RC] 04,16 Up With Assistance [RC] DAILY VTE/DVT Education [RC] BID Vital Signs [RC] 00,04,08,12,16,20 Consult to Case Management/Manager [place] [CONS] Routine Consult to Physician [CONS] Routine Consult to Spiritual Care [CONS] Routine Acetaminophen [TylenoL] 650 mg PO Q4H PRN Docusate Sodium [Colace] 100 mg PO BID PRN Morphine 2 mg IVPUSH Q2H PRN Ondansetron [Zofran] 4 mg IV Q6H PRN Sequential Compression Device [OM.PC] Per Unit Routine Resuscitation Status Routine 10/08/20 13:27 Antiembolic Devices [RC] BID Notify Provider Consults [RC] DAILY 10/08/20 13:29 RT Incentive Spirometry [RC] ASDIRECTED 10/08/20 13:31 Accu Check [Blood Glucose Check, Bedside] [RC] QIDACANDBED 10/08/20 13:34 CORBIN Hose [Antiembolic Hose] [OM.PC] Routine 10/08/20 Dinner Consistent Carbohydrate Diet [DIET] Insulin Lispro [HumaLOG] See Protocol SUBCUT QIDACANDBED 10/09/20 09:00 Aspirin [Ecotrin] 325 mg PO BID Famotidine [Pepcid] 20 mg PO DAILY Levothyroxine 125 mcg PO DAILY 10/10/20 05:11 CBC WITH AUTO DIFF [HEME] AM CMP [COMPREHENSIVE METABOLIC PN,CMP] [CHEM] AM 10/11/20 05:11 CBC WITH AUTO DIFF [HEME] AM CMP [COMPREHENSIVE METABOLIC PN,CMP] [CHEM] AM 10/12/20 05:11 CBC WITH AUTO DIFF [HEME] AM CMP [COMPREHENSIVE METABOLIC PN,CMP] [CHEM] AM - Assessment Assessment:: Assessment - day of admission 10/08/20 * 70 yo female who presents to our ED after a fall resulting in left hip pain * History of type II DM and hypothyroidism * 12-Lead EKG obtained in ED: NSR at 85 BPM with no ectopy or signs of ischemia * Denies any infectious symptoms * Denies hitting head or hurting back/neck * Hip X-ray in ED: Subcapital fracture of left hip * Labs in ED: * WBC 12.91 * Hgb 14.8 * Plt 247 * Neutrophils 10.77 * INR 0.96 * Sodium 141 * Potassium 4.0 * Anion gap 18.0 * BUN 19, Creatinine 0.9, GFR >60 * Glucose 181 * Bilirubin 0.4 * AST 18, ALT 36, Alk Phos 77 * Troponin <0.017 * Albumin 4.0 * TSH 1.010 * A1C 7.9 * SARS-CoV-2 RNA negative * Given norco for pain * Dr. Cedillo consulted in ED * Patient taken back for BERE on 10/08/20 10/09/20 * Patient continues to improve * Reports pain has improved * Per PT patient was quite numb until late last night and today is her first day working with them. * PT recommending patient remain admitted tonight and discharge home tomorrow * Patient is concerned about discharging today as well * Labs today: * WBC 9.34 * hemoglobin 12.8 * platelets 210,000 * neutrophils 6.73 * sodium 136 * potassium 3.9 * anion gap 15.9 * GFR greater than 60 * glucose 177 * albumin 3.3 * Continue current treatment plan * Hopeful for discharge on 10/10/20 pending PT/OT recommendations - Plan Plan:: S/P total hip arthroplasty with Dr. Cedillo on 10/08/20 Hip fracture, left Fall * Pain medications/Flexeril as ordered * 325 ASA BID starting today * Cesar/CORBIN Rosa * Polar care * PT/OT consultation * CM/SW consultation * Dr. Cedillo following * O2 as needed * Ambulate * Monitor labs Hypothyroidism Type II diabetes mellitus * Hold metformin * Low intensity sliding scale insulin * QID AC and Bedtime blood glucose checks * Consistent carbohydrate diet * Continue levothyroxine Code status: Full Code PCP: Dr. Giordano DVT prophylaxis: Cesar, CORBIN rosa, and BID ASA Social: Patient plans to discharge with her son who will take care of her Disposition: Patient admitted after surgical fixation of her left hip fracture, BERE, and for post-operative management.
--- NOTE | 2020-10-09 15:10 | PCM48HPAN ---
Post Anesthesia Note - EVALUATION WITHIN 48HRS OF ANESTHETIC Vital Signs in Normal Range: Yes Patient Participated in Evaluation: Yes Respiratory Function Stable: Yes Airway Patent: Yes Cardiovascular Function Stable: Yes Hydration Status Stable: Yes Pain Control Satisfactory: Yes Nausea and Vomiting Control Satisfactory: Yes Mental Status Recovered: Yes Vital Signs: Last Vital Signs Temp 36.6 C 10/09/20 11:38 Pulse 91 10/09/20 11:38 Resp 18 10/09/20 11:38 BP 137/59 L 10/09/20 11:38 Pulse Ox 92 L 10/09/20 11:38
[2020-10-10] MEDS: Acetaminophen/HYDROcodone 325-5 MG Tab PO PRN ×2 (06:21→12:32)
[2020-10-10] MEDS: Famotidine 20 MG Tab PO SCH (07:59)
[2020-10-10] MEDS: Levothyroxine 125 MCG Tab PO SCH (08:00)
[2020-10-10] MEDS: Aspirin 325 MG Tab.EC PO SCH (08:00)
--- NOTE | 2020-10-10 12:29 | PCM.DCSUM1 ---
Discharge Summary - Hospital Course Free Text/Narrative:: Assessment - day of admission 10/08/20 * 70 yo female who presents to our ED after a fall resulting in left hip pain * History of type II DM and hypothyroidism * 12-Lead EKG obtained in ED: NSR at 85 BPM with no ectopy or signs of ischemia * Denies any infectious symptoms * Denies hitting head or hurting back/neck * Hip X-ray in ED: Subcapital fracture of left hip * Labs in ED: * WBC 12.91 * Hgb 14.8 * Plt 247 * Neutrophils 10.77 * INR 0.96 * Sodium 141 * Potassium 4.0 * Anion gap 18.0 * BUN 19, Creatinine 0.9, GFR >60 * Glucose 181 * Bilirubin 0.4 * AST 18, ALT 36, Alk Phos 77 * Troponin <0.017 * Albumin 4.0 * TSH 1.010 * A1C 7.9 * SARS-CoV-2 RNA negative * Given norco for pain * Dr. Cedillo consulted in ED * Patient taken back for BERE on 10/08/20 10/09/20 * Patient continues to improve * Reports pain has improved * Per PT patient was quite numb until late last night and today is her first day working with them. * PT recommending patient remain admitted tonight and discharge home tomorrow * Patient is concerned about discharging today as well * Labs today: * WBC 9.34 * hemoglobin 12.8 * platelets 210,000 * neutrophils 6.73 * sodium 136 * potassium 3.9 * anion gap 15.9 * GFR greater than 60 * glucose 177 * albumin 3.3 * Continue current treatment plan * Hopeful for discharge on 10/10/20 pending PT/OT recommendations - Plan Plan:: S/P total hip arthroplasty with Dr. Cedillo on 10/08/20 Hip fracture, left Fall * Pain medications/Flexeril as ordered * 325 ASA BID starting today * Cesar/CORBIN Porter * [facility] care * PT/OT consultation * CM/SW consultation * Dr. Cedillo following * O2 as needed * Ambulate * Monitor labs Hypothyroidism Type II diabetes mellitus * Hold metformin * Low intensity sliding scale insulin * QID AC and Bedtime blood glucose checks * Consistent carbohydrate diet * Continue levothyroxine Code status: Full Code PCP: Dr. Giordano DVT prophylaxis: SCDs, CORBIN rameshe, and BID ASA Social: Patient plans to discharge with her son who will take care of her Disposition: Patient admitted after surgical fixation of her left hip fracture, BERE, and for post-operative management. 10/10/20 patient has mild pain from left hip. Otherwise patient does not have any complaints. Vital signs are stable and acceptable. PT OT ok today to discharge this patient to home to continue with outpatient physical therapy which was ordered. Her home diabetic medication will be resumed. Please check blood sugar before each meal and at bedtime. Adjust diabetic meds based on sugar levels. Patient needs to follow with PCP within [address] Cedillo in 1 to 2 weeks. Continue aspirin 325 mg twice daily. If you have bleeding, stop aspirin and call PCP. Please ambulate more frequently (every 1-2 hours) to prevent from blood clotting. Call PCP for medical issues. Diagnosis: Stroke: No - Discharge Data Discharge Date: 10/10/20 Discharge Disposition: Home, Self-Care 01 Condition: Good - Referral to Home Health Primary Care Physician: Gifty Giordano MD - Patient Summary/Data Operative Procedure(s) Performed: left total hip arthroplasty Consults: Consultations 10/08/20 13:06 Consult to Physical Therapy [PT Evaluation and Treatment] [CONS] Routine 10/08/20 13:07 Consult to Occupational Therapy [OT Evaluation and Treatment] [CONS] Routine 10/08/20 13:26 Consult to Case Management/Manager Telemetry [CONS] Routine Consult to Physician [CONS] Routine Consult to Spiritual Care [CONS] Routine Recommended Follow-up Testing/Procedures: Following PCP within [address] Cedillo in 1-2 wks. Repeat CBC & CMP in 3 days - Patient Instructions Diet: Diabetic Diet Activity: As Tolerated Driving: Do Not Drive - Discharge Plan *PRESCRIPTION DRUG MONITORING PROGRAM REVIEWED*: Yes *COPY OF PRESCRIPTION DRUG MONITORING REPORT IN PATIENT JOSEPHINE: Yes Prescriptions/Med Rec: Aspirin [Ecotrin EC] 325 mg PO BID 30 Days #60 tab.ec Insulin Lispro [Humalog] See Protocol SUBCUT QIDACANDBED 30 Days #3 ml Pantoprazole [ProTONIX IV] 40 mg IV DAILY 30 Days #30 vial Home Medications: Home Meds Calcium Carbonate [Calcium] 500 mg PO BEDTIME 10/08/20 [History] Cholecalciferol (Vitamin D3) [Vitamin D3] 1,000 mg PO BID 10/08/20 [History] Fish Oil/[place]-3 Fatty Acids [Fish Oil 1,000 MG] 1 gm PO DAILY 10/08/20 [History] Levothyroxine 125 mcg PO DAILY 10/08/20 [History] Multivitamin 1 tab PO DAILY 10/08/20 [History] Ubidecarenone [Co Q-10] 10 mg PO DAILY 10/08/20 [History] Zinc 50 mg PO DAILY 10/08/20 [History] metFORMIN [Glucophage] 1,000 mg PO BID 10/08/20 [History] Aspirin [Ecotrin EC] 325 mg PO BID 30 Days #60 tab.ec 10/10/20 [Rx] Insulin Lispro [Humalog] See Protocol SUBCUT QIDACANDBED 30 Days #3 ml 10/10/20 [Rx] Pantoprazole [ProTONIX IV] 40 mg IV DAILY 30 Days #30 vial 10/10/20 [Rx] Oxygen Therapy Mode: Room Air Forms: ED Department Discharge Referrals: Gifty Giordano MD [Primary Care Provider] - 10/19/20 9:00 am (9:00 check in and appt. is at 9:30) Alba Swann PA-C [Physician [employer]earing [employer] Machine Operator] - 10/14/20 2:45 pm (Please follow up with Alba Swann on at 1445. ) - Discharge Summary/Plan Comment DC Time >30 min.: Yes - General Info Date of Service: 10/10/20 Admission Dx/Problem (Free Text: Admission Diagnosis/Problem Admission Diagnosis/Problem Hip fracture requiring operative repair Subjective Update: The patient does not have any complaints aside pain from surgical hip. PT OT today to discharge patient to home with outpatient physical therapy. - Patient Data Vitals - Most Recent: Last Vital Signs Temp 36.7 C 10/10/20 08:04 Pulse 91 10/10/20 08:04 Resp 14 10/10/20 08:04 BP 137/67 10/10/20 08:04 Pulse Ox 92 L 10/10/20 08:04 Weight - Most Recent: 83.915 kg I&O - Last 24 hours: Intake & Output 10/09/20 10/10/20 10/10/20 22:59 06:59 14:59 Intake Total 1750 400 240 Output Total 950 Balance 800 400 240 Lab Results - Last 24 hrs: Laboratory Results - last 24 hr 10/09/20 10/09/20 10/10/20 Range/Units 16:57 21:15 04:53 WBC 8.67 (3.98-10.04) K/mm3 RBC 3.90 L (3.98-5.22) M/mm3 Hgb 12.2 (11.2-15.7) gm/dl Hct 36.5 (34.1-44.9) % MCV 93.6 (79.4-94.8) fl MCH 31.3 (25.6-32.2) pg MCHC 33.4 (32.2-35.5) g/dl RDW Std Deviation 43.4 (36.4-46.3) fL Plt Count 186 (182-369) K/mm3 MPV 9.6 (9.4-12.3) fl Neut % (Auto) 66.8 (34.0-71.1) % Lymph % (Auto) 15.8 L (19.3-51.7) % [place] % (Auto) 15.3 H (4.7-12.5) % Eos % (Auto) 1.6 (0.7-5.8) Baso % (Auto) 0.3 (0.1-1.2) % Neut # (Auto) 5.78 (1.56-6.13) K/mm3 Lymph # (Auto) 1.37 (1.18-3.74) K/mm3 [place] # (Auto) 1.33 H (0.24-0.36) K/mm3 Eos # (Auto) 0.14 (0.04-0.36) K/mm3 Baso # (Auto) 0.03 (0.01-0.08) K/mm3 Manual Slide Review Normal smear Sodium (136-145) mEq/L Potassium (3.5-5.1) mEq/L Chloride (98-107) mEq/L Carbon Dioxide (21-32) mEq/L Anion Gap (5-15) BUN (7-18) mg/dL Creatinine (0.55-1.02) mg/dL Est Cr Clr Drug Dosing mL/min Estimated GFR (MDRD) (>60) mL/min BUN/Creatinine Ratio (14-18) Glucose (83-115) mg/dL POC Glucose 202 H 244 H (83-110) mg/dL Calcium (8.5-10.1) mg/dL Total Bilirubin (0.2-1.0) mg/dL AST (15-37) U/L ALT (14-59) U/L Alkaline Phosphatase (46-116) U/L Total Protein (6.4-8.2) g/dl Albumin (3.4-5.0) g/dl Globulin gm/dL Albumin/Globulin Ratio (1-2) 10/10/20 10/10/20 10/10/20 Range/Units 04:53 05:18 11:27 WBC (3.98-10.04) K/mm3 RBC (3.98-5.22) M/mm3 Hgb (11.2-15.7) gm/dl Hct (34.1-44.9) % MCV (79.4-94.8) fl MCH (25.6-32.2) pg MCHC (32.2-35.5) g/dl RDW Std Deviation (36.4-46.3) fL Plt Count (182-369) K/mm3 MPV (9.4-12.3) fl Neut % (Auto) (34.0-71.1) % Lymph % (Auto) (19.3-51.7) % [place] % (Auto) (4.7-12.5) % Eos % (Auto) (0.7-5.8) Baso % (Auto) (0.1-1.2) % Neut # (Auto) (1.56-6.13) K/mm3 Lymph # (Auto) (1.18-3.74) K/mm3 [place] # (Auto) (0.24-0.36) K/mm3 Eos # (Auto) (0.04-0.36) K/mm3 Baso # (Auto) (0.01-0.08) K/mm3 Manual Slide Review Sodium 135 L (136-145) mEq/L Potassium 3.7 (3.5-5.1) mEq/L Chloride 99 (98-107) mEq/L Carbon Dioxide 24 (21-32) mEq/L Anion Gap 15.7 H (5-15) BUN 12 (7-18) mg/dL Creatinine 0.8 (0.55-1.02) mg/dL Est Cr Clr Drug Dosing 58.04 mL/min Estimated GFR (MDRD) > 60 (>60) mL/min BUN/Creatinine Ratio 15.0 (14-18) Glucose 200 H (83-115) mg/dL POC Glucose 200 H 210 H (83-110) mg/dL Calcium 8.6 (8.5-10.1) mg/dL Total Bilirubin 0.8 (0.2-1.0) mg/dL AST 28 (15-37) U/L ALT 24 (14-59) U/L Alkaline Phosphatase 54 (46-116) U/L Total Protein 6.9 (6.4-8.2) g/dl Albumin 3.0 L (3.4-5.0) g/dl Globulin 3.9 gm/dL Albumin/Globulin Ratio 0.8 L (1-2) Med Orders - Current: Current Medications Acetaminophen (Tylenol) 650 mg PO Q4H PRN PRN Reason: Pain (Mild 1-3)/fever Last Admin: 10/08/20 14:52 Dose: 650 mg Documented by: Hydrocodone Bitart/Acetaminophen ([place] 325-5 Mg) 1 tab PO Q4H PRN PRN Reason: Pain Last Admin: 10/10/20 06:21 Dose: 1 tab Documented by: Aspirin (Ecotrin) 325 mg PO BID ON LICENSE OF [facility] Last Admin: 10/10/20 08:00 Dose: 325 mg Documented by: Cyclobenzaprine HCl (Flexeril) 10 mg PO TID PRN PRN Reason: Muscle Spasm Last Admin: 10/09/20 08:49 Dose: 10 mg Documented by: Docusate Sodium (Colace) 100 mg PO BID PRN PRN Reason: Constipation Last Admin: 10/10/20 08:14 Dose: 100 mg Documented by: Famotidine (Pepcid) 20 mg PO DAILY ON LICENSE OF [facility] Last Admin: 10/10/20 07:59 Dose: 20 mg Documented by: Insulin Human Lispro (Humalog) 0 unit SUBCUT QIDACANDBED ON LICENSE OF [facility]; Protocol Last Admin: 10/10/20 11:40 Dose: 2 units Documented by: Levothyroxine Sodium (Levothyroxine) 125 mcg PO DAILY ON LICENSE OF [facility] Last Admin: 10/10/20 08:00 Dose: 125 mcg Documented by: Ondansetron HCl (Zofran) 4 mg IV Q6H PRN PRN Reason: Nausea/Vomiting Discontinued Medications Hydrocodone Bitart/Acetaminophen ([place] 325-5 Mg) 1 tab PO ONETIME ONE Stop: 10/08/20 07:56 Last Admin: 10/08/20 08:01 Dose: 1 tab Documented by: Bupivacaine HCl (Sensorcaine-Mpf 0.25%) Confirm Administered Dose 0 ml .ROUTE .STK-MED ONE Stop: 10/08/20 11:00 Cefazolin Sodium (Ancef) Confirm Administered Dose 2 gm .ROUTE .STK-MED ONE Stop: 10/08/20 11:17 Morphine Sulfate 8 mg/Epinephrine HCl 0.3 mg/Cefuroxime Sodium 750 mg/Ketorolac Tromethamine 30 mg/Sodium Chloride 7.9 ml 0 mg .XX ASDIRECTED PRN PRN Reason: Other Stop: 10/08/20 18:00 Last Admin: 10/08/20 12:43 Dose: 788.3 mg Documented by: Fentanyl (Sublimaze) Confirm Administered Dose 100 mcg .ROUTE .STK-MED ONE Stop: 10/08/20 10:42 Lidocaine HCl (Xylocaine-Mpf 1%) Confirm Administered Dose 4 mls @ as directed .ROUTE .STK-MED ONE Stop: 10/08/20 10:45 Ketamine HCl (Ketalar) Confirm Administered Dose 500 mg .ROUTE .STK-MED ONE Stop: 10/08/20 10:43 Midazolam HCl (Versed 1 Mg/Ml) Confirm Administered Dose 2 mg .ROUTE .STK-MED ONE Stop: 10/08/20 10:43 Miscellaneous Medication (Phenylephrine 1 Mg/10 Ml-Ns) Confirm Administered Dose 1 mg .ROUTE .STK-MED ONE Stop: 10/08/20 11:50 Miscellaneous Medication (Phenylephrine 1 Mg/10 Ml-Ns) Confirm Administered Dose 1 mg .ROUTE .STK-MED ONE Stop: 10/08/20 12:34 Morphine Sulfate (Morphine) 2 mg IVPUSH Q2H PRN PRN Reason: Breakthrough Pain Stop: 10/09/20 13:27 Last Admin: 10/09/20 01:03 Dose: 2 mg Documented by: Propofol (Diprivan 20 Ml) Confirm Administered Dose 400 mg .ROUTE .STK-MED ONE Stop: 02/04/21 10:42 Sodium Chloride (Saline Flush) 10 ml FLUSH ASDIRECTED PRN PRN Reason: Keep Vein Open Stop: 10/08/20 18:00 Last Admin: 10/08/20 08:59 Dose: 10 ml Documented by: Tranexamic Acid (Cyklokapron) Confirm Administered Dose 1,000 mg .ROUTE .STK-MED ONE Stop: 10/08/20 10:59 Last Admin: 10/08/20 12:47 Dose: 1,000 mg Documented by: Vancomycin HCl (Vancomycin) Confirm Administered Dose 1 gm .ROUTE .STK-MED ONE Stop: 10/08/20 10:59 Last Admin: 10/08/20 12:47 Dose: 1 gm Documented by: - Exam Physical Findings Comments:: General: Alert, Oriented, Cooperative, No Acute Distress HEENT: Pupils Equal, Pupils Reactive, Mucous Membr. Moist/[place] Neck: Supple, Trachea Midline Lungs: Clear to Auscultation, Normal Respiratory Effort Cardiovascular: Regular Rate, Regular Rhythm GI/Abdominal Exam: Normal Bowel Sounds, Soft, Non-Tender, No Distention (Female) Exam: Deferred Back Exam: Normal Inspection, Full Range of Motion Extremities: left hip tenderness and dressing day Peripheral Pulses: 2+: Radial (L), Radial (R), Dorsalis Pedis (L), Dorsalis Pedis (R) Skin: Warm, Dry, Intact Wound/Incisions: Dressing Dry and Intact Neurological: No New Focal Deficit Psy/Mental Status: Alert, Normal Affect, Normal Mood
--- NOTE | 2020-10-16 09:54 | OR ---
DATE OF OPERATION: 10/08/2020 SURGEON: Raymon Cedillo MD OPERATION PERFORMED: Left total hip arthroplasty. PREOPERATIVE DIAGNOSIS: Displaced left subcapital femoral neck fracture. POSTOPERATIVE DIAGNOSIS: Displaced left subcapital femoral neck fracture. ANESTHESIA: Local MAC with spinal. ANESTHESIA PROVIDER: Brinda Olivas. RECORDER OF DEEDS: Radha Georges LPN. ESTIMATED BLOOD LOSS: 150 mL. COMPLICATIONS: None. CONDITION: Stable. IMPLANTS: 1. Jay Jay size 52 mm solid Tritanium II acetabular cup. 2. Jay Jay size 5 Accolade 2 stem. 3. Jay Jay size 28 +0 MDM components. DESCRIPTION OF PROCEDURE: The patient was identified in the preoperative holding area. Proper site was marked, identified by the surgeon. The patient was taken back to the operating theater where after adequate anesthesia, the patient was placed in a right lateral decubitus position. Axillary roll was placed, pegs were then placed and well padded. The patient's gluteal fold was parallel to the floor. Left hip was then sterilely prepped and draped in the usual sterile fashion. OR time-out was performed. The patient received 2 g IV Ancef. Standard posterior incision was made centered over the greater trochanter. This was taken down to the IT band and gluteal fascia was incised along the incisional length. Charnley retractor was then placed. Takedown of the short external rotators was done from the level of the piriformis down to the lesser trochanter. Corkscrew was then used to remove the head and neck fragment that was fractured. A clean up cut on the femoral neck was then done at this time. Attention was turned to the acetabulum. Anterior and posterior acetabular retractors were placed. Circumferential removal of the labrum was done at this time as well as the pulvinar. Starting with a 48 reamer, I was able to ream up to a 52 which was found to have adequate purchase and a good bony bleeding bed. A 52 mm Tritanium II acetabular cup was then impacted in place in anatomic position for the patient. The MDM liner was impacted in place. Attention was turned to the femur. Box chisel was used out laterally, starter awl placed down the canal. Starting with the 0 broach, I was able to broach up to a size 5 which was found to be rotationally and vertically stable. Trial MDM components with a 28 +0 were placed. The patient had adequate tenriism of leg lengths and stable throughout range of motion. Bone hook was used to dislocate the hip. Trial implants were then removed. Size 5 Accolade 2 stem was impacted into place and the 28 +0 MDM components were impacted into place. Hip was then relocated. #5 Ethibond suture was used for closure of the short external rotators and capsule. Irrisept irrigation as well as 1 L pulse lavage irrigation with Ancef were irrigated through the hip. Periarticular injection was completed. Topical tranexamic acid and vancomycin powder were applied. A #2 barbed suture was used for closure of the IT band and gluteal fascia, 2-0 Vicryl and Stratafix were used subcutaneously, and Prineo was used for closure of the skin. The patient tolerated the procedure well, was sent to PACU in stable condition. MMODAL /[id number]
== END 2020-10-10 14:30 | disposition home or self-care (01) | DRG 522 ==
LOC: SUPCPDRO 07:44 → JD.ED 07:44 → JD.SDS 10:14 → JD.MS 13:41
PROVIDERS: ADMIT Family Medicine; ATTEND Family Medicine
PROC: 0SRB0JZ Replacement of Left Hip Joint with Synthetic Substitute, Open Approach (ICD-10-PCS; principal; 2020-10-08)
DX: S72.012A Unspecified intracapsular fracture of left femur, initial encounter for closed fracture (principal); S72.002A Fracture of unspecified part of neck of left femur, initial encounter for closed fracture; Z79.4 Long term (current) use of insulin; W01.0XXA Fall on same level from slipping, tripping and stumbling without subsequent striking against object, initial encounter; Z87.440 Personal history of urinary (tract) infections; Z88.8 Allergy status to other drugs, medicaments and biological substances; W00.0XXA Fall on same level due to ice and snow, initial encounter; Y92.89 Other specified places as the place of occurrence of the external cause; Z79.84 Long term (current) use of oral hypoglycemic drugs; Z79.890 Hormone replacement therapy; H54.7 Unspecified visual loss; H91.93 Unspecified hearing loss, bilateral; E03.9 Hypothyroidism, unspecified; E11.9 Type 2 diabetes mellitus without complications; Z20.822 Contact with and (suspected) exposure to COVID-19
CPT/HCPCS: 27130; 36415; 73501; 73502; 80053; 82962 ×2; 83036; 84443; 84484; 85025; 85610; 85730; 93005; 99285; A9270; C1776 ×5; J0171; J0690; J0697; J1885; J2250; J2270; J2370 ×2; J2704; J3010; J3370; U0002; 01214; 93010; 94760; 94761; 97110-GP; 97116-GP; 97161-GP; 97165-GO; 97530-GO; 97530-GP; 97535-GO; 99222; 99233; 99239; 99284; J1815-GY; J3490

== ENCOUNTER 2024-01-20 19:14 | Emergency (ER) | payer MEDICARE, OTHER ==
[2024-01-20 19:38] LABS: BASOPHILS PERCENT AUTO 0.5 % (0.0-1.0); EOSINOPHILS ABSOLUTE AUTO 0.1 K/mm3 (0.0-0.4); EOSINOPHILS PERCENT AUTO 1.3 % (0.0-6.0); HEMOGLOBIN 15.6 gm/dl (12.0-16.0); IMMATURE GRAN ABSOLUTE AUTO 0.02 K/mm3 (0.00-0.05); IMMATURE GRAN PERCENT AUTO 0.2 % (0.0-0.4); LYMPHOCYTES ABSOLUTE AUTO 3.4 K/mm3 (1.0-4.8); MEAN CORPUSCULAR HEMOGLOBIN 31.9 pg (28.0-32.0); MEAN CORPUSCULAR HGB CONC 34.7 g/dl (32.0-36.0); MEAN PLATELET VOLUME 10.2 fl (9.4-12.3); MONOCYTES ABSOLUTE AUTO 0.9 K/mm3 (0.0-0.8); MONOCYTES PERCENT AUTO 9.9 % (0.0-8.0); NEUTROPHILS ABSOLUTE AUTO 4.3 K/mm3 (1.8-7.7); NEUTROPHILS PERCENT AUTO 49.1 % (41.0-71.0); PLATELET COUNT,PLT 268 K/mm3 (150-400); RED BLOOD CELL COUNT 4.89 M/mm3 (4.10-5.30); WHITE BLOOD CELL COUNT,WBC 8.72 K/mm3 (3.9-11.3)
[2024-01-20] MEDS: Labetalol 100 MG/20 ML MDV ONE (19:47)
[2024-01-20] MEDS: Labetalol 100 MG/20 ML MDV IVPUSH ONE (19:48)
[2024-01-20 19:54] LABS: ALANINE AMINOTRANSFERASE,ALT 31 U/L (14-59); ALBUMIN 4.1 g/dl (3.4-5.0); ALKALINE PHOSPHATASE 90 U/L (46-116); ASPARTATE AMNIOTRANSFERASE,AST 10 U/L (15-37); BILIRUBIN TOTAL 0.4 mg/dL (0.2-1.0); BLOOD UREA NITROGEN,BUN 15 mg/dL (7-18); BUN/CREATININE RATIO 13.6 (14-18); CALCIUM 9.6 mg/dL (8.5-10.1); CARBON DIOXIDE,CO2 24 mEq/L (21-32); CHLORIDE,CL 100 mEq/L (98-107); CREATININE 1.1 mg/dL (0.55-1.02); ESTIMATED GFR 52 mL/min (>60); GLUCOSE RANDOM 287 mg/dL (70-99); PROTEIN TOTAL,TP 8.4 g/dl (6.4-8.2); SODIUM,NA 137 mEq/L (136-145)
[2024-01-20] MEDS: Aluminum Hydroxide/Magnesium Hydroxide/Simethicone Susp 30 ML Cup PO ONE (19:54)
[2024-01-20] MEDS: Famotidine 20 MG/2 ML SDV IVPUSH ONE (19:54)
[2024-01-20 20:02] LABS: TROPONIN I HIGH SENSITIVITY 99 pg/mL (<=51)
[2024-01-20] MEDS: Iopamidol 755 Mg/ML 100 ML Bottle IVPUSH ONE (20:38)
[2024-01-20] MEDS: Sodium Chloride 0.9% 10 ML Syringe FLUSH PRN (20:39)
[2024-01-20] MEDS ORDERED: Sodium Chloride 0.9% 100 ML IV SCH (20:45)
[2024-01-20] MEDS ORDERED: Nitroglycerin 0.4 MG Tab.SL ONE (22:15)
[2024-01-20] MEDS: Nitroglycerin 0.4 MG Tab.SL SL ONE (22:17)
[2024-01-20 22:45] LABS: INR 0.94; PROTHROMBIN TIME 10.1 SECONDS (9.7-12.0)
[2024-01-20 22:47] LABS: PTT,PARTIAL THROMBOPLSTIN TIME 30.3 SECONDS (21.7-31.4)
[2024-01-20] MEDS: Heparin Sodium/D5W 25,000 UNITS/500 ML BAG IV SCH (22:48)
[2024-01-20] MEDS: Heparin Sodium 5,000 Units/ML Vial IVPUSH ONE (22:48)
== END 2024-01-20 23:11 ==
LOC: JD.ED 19:14
DX: I21.4 Non-ST elevation (NSTEMI) myocardial infarction (principal); E11.9 Type 2 diabetes mellitus without complications; E03.9 Hypothyroidism, unspecified; Z79.899 Other long term (current) drug therapy; Z79.84 Long term (current) use of oral hypoglycemic drugs; Z79.82 Long term (current) use of aspirin; Z88.8 Allergy status to other drugs, medicaments and biological substances; I10 Essential (primary) hypertension
CPT/HCPCS: 36415; 71275; 71275-26; 74175; 74175-26; 80053; 83690; 84484; 85025; 85610; 85730; 93005; 93010; 96365; 96375; 99285; 99285-25; A9270-GY; J1644; J1921; J3490; Q9967